=== PATIENT | female | born 1970 | race Caucasian/White ===

== ENCOUNTER 2023-08-25 09:45 | Outpatient (RCR) | payer OTHER, SELFPAY ==
--- NOTE | 2023-06-14 12:54 | PT.OIE ---
Current Diagnoses Rectocele (06/14/23) Pelvic muscle wasting (06/14/23) Past Surgical History History of tonsillectomy Status post surgery (10/27/15) Visit Care Team Role Provider Type Tonya Cartwright PA-C Primary Care Provider Non-Staff Specialty: Medical Address: [address] [place] [address] [address], [place], [address] Email: Aleyda Liao MD Family Provider Physician Specialty: PAPER DELIVERER Address: [address] [place] [address] [address], [place], [address] Email: [email or web address] Pablo Hassan MD Attending Provider Non-Staff Referring Provider Specialty: PAPER DELIVERER Address: [address] [place] [address], [address], [place], [address] Email: Physical Therapy Initial Evaluation PT-OP-A Visit Information Start: 06/14/23 08:15 Freq: Status: Active Protocol: Document 06/14/23 09:48 [facility] (Rec: 06/14/23 09:49 [facility] [id number]) Out-Patient Physical Therapy Visit Information Visit Information Visit Type Initial Evaluation Visit Start Time 09:48 Visit Stop Time 10:30 Visit Number 1 Evaluation Information Evaluation Date 06/14/23 PT-OP-B Current Condition Start: 06/14/23 08:15 Freq: Status: Active Protocol: Document 06/14/23 09:45 [facility] (Rec: 06/14/23 10:21 [facility] [id number]) Current Condition History of Current Condition Onset Date October 2021 Current Complaints pelvic heaviness, pressure, flatulence, decreased ability to weight lift 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 She was also have heavy periods and break through bleeding. She had a D&C just to make sure everything is going well. He told her she had a minor prolapse and gave her a note to decrease repetitive lifting. Now the lifting is pretty minimal. Recently it increased and she was told stage 2 rectocele and stage 1 uterine prolapse. She started working out and lifting weights and that's when things started to increase. She feels like air is trapped and bubbles and flatulence. She stopped working out as she didn't want it to get worse. History of vaginal deliveries x 2 with a 10 lb baby with her first. She has chronic IBS and constipation and she has constipation, she is now taking magnesium and she feels less bloated. Making sure she is more regular helps take that pressure off. 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 She notes that exercise including weight lifting and lifting anything heavy has made it worse. PT-OP-F Manual Assessment Start: 06/14/23 08:15 Freq: Status: Active Protocol: Document 06/14/23 09:45 [facility] (Rec: 06/15/23 12:35 [facility] [id number]) Manual Assessments Soft Tissue Assessment Soft Tissue Mobility Assessment tightness in the fascial tissue of the descending colon on left side of abdominal wall PT-OP-I Pelvic Floor Start: 06/14/23 08:15 Freq: Status: Active Protocol: Document 06/14/23 09:45 [facility] (Rec: 06/15/23 12:35 [facility] [id number]) Pelvic Floor Assessment Urine Pelvic Floor Surgery No Urinary Symptoms Prolapse Other Urinary Symptoms incomplete emptying of the bowels and feeling as if there is air in her rectum, flatulence Other Leakage Causes no urinary leakage noted Pelvic Clock Pelvic Clock 12-3 Atrophy Pelvic Clock 3-6 Atrophy Pelvic Clock 6-9 Atrophy Pelvic Clock 9-12 Atrophy Prolapse Uterine Prolapse Grade 2 Cystocele Grade 1 Rectocele Grade 1 Prolapse Comments thinning of the tissue over the rectum Contraction Ability Voluntary Contraction Weak Voluntary Relaxation Weak Manual Muscle Testing Left 2 Manual Muscle Testing Right 2 Manual Muscle Testing Anterior 2 Manual Muscle Testing Posterior 2 Muscle Endurance (Seconds) 3 Comments Pelvic Floor Comments decreased endurance of the levator ani PT-OP-Q Treatments Start: 06/14/23 08:15 Freq: Status: Active Protocol: Document 06/14/23 09:45 [facility] (Rec: 06/15/23 12:35 [facility] [id number]) Therapeutic Exercises Supine Exercises pelvic floor long holds Reps/Minutes working up to 10 second hold and 10 second relaxation PT-OP-T Assessment and Plan Start: 06/14/23 08:15 Freq: Status: Active Protocol: Document 06/14/23 09:45 [facility] (Rec: 06/15/23 12:35 [facility] [id number]) Physical Therapy Assessment Rehab Potential Rehabilitation Potential Excellent Evaluation Complexity Number of Personal Factors/Comorbidities 0 Number of Body Systems Impaired 1-2 Clinical Presentation at Evaluation Stable Impairments Impairments Activity Tolerance,Functional Activities,Functional Mobility ,Pain,Soft Tissue Mobility, Strength,Tone Other Impairments pelvic organ prolapse which limits activity level Goals 3 Impairment pelvic organ prolapse with complaints of feeling as if she is sitting on a ball Short Term Goal (STG) Mirna is educated in pelvic decompression exercises STG Duration 4 weeks Electronic Health Records Specialist Goal (LTG) Mirna is able to return to weightlifting using proper form and breathing strategies to decrease downward force onto her pelvic organs LTG Duration 12 weeks 2 Impairment Decreased strength of the pelvic floor with MMT of 2/5 Short Term Goal (STG) Mirna is educated on a HEP to increase pelvic floor strength STG Duration 4 weeks Electronic Health Records Specialist Goal (LTG) Mirna presents with a overall improvement of pelvic floor strength to 3/5 or better to improve pelvic organ support LTG Duration 12 weeks 1 Impairment Decreased endurance of the pelvic floor Short Term Goal (STG) Mirna is able to sustain a pelvic floor contraction x 10 seconds in supine STG Duration 5 weeks Electronic Health Records Specialist Goal (LTG) Mirna is able to sustain a pelvic floor contraction in standing x 10 seconds LTG Duration 12 weeks Assessment Summary Assessment Mirna is a 52 year old female referred to PT for pelvic floor rehab for pelvic organ prolapse. She began noting symptoms in 2021 but recently her symptoms increased after she started going to the gym and weight lifting. Specifically Mirna notes increased feeling of flatulence and air being trapped in her rectum and seh feels pressure when she is sitting as if she is sitting on a ball. She has a history of IBS and chronic constipation. Recently she has really been working on this and has been supplementing with magnesium which she feels is really helping her bowels. Mirna is wanting to continue exercising and weightlifting but has stopped due to increased pressure. WIth exam today there is fascial tightness over the descending colon on the left lateral abdominal wall. Mirna was shown a self massage for her colon. With pelvic floor exam Mirna is able to facilitate a contraction of all crane of her levator ani. She tests 2/ 5 MMT and atrophy is noted as well as thinning over the posterior wall. She may be a candidate for vaginal estrogen to help with vaginal tissue. She lacks endurance of the pelvic floor and is only able to hold for a few seconds at a time. There is a grade 1-2 uterine prolapse, grade 1-2 rectal prolapse and grade 1 cystocele with exam today. I did recommend poise impressa supports for when she is exercising to help with splinting her pelvic organs. She did say she was educated on a pessary but it was not something she wanted to do right now. Mirna is a good candidate for pelvic floor PT. Treatment will focus on pelvic decompression exercises, pelvic floor endurance training, pelvic floor strength training, toileting strategies, MFR for the abdominal wall and HEP. Physical Therapy Plan Frequency and Duration Frequency of Treatment 1x/Week Duration of treatment (weeks) 12 Plan of Care Start Date 06/14/23 Plan of Care End Date 09/27/23 Therapeutic Interventions Therapeutic Interventions Home Exercise Program,Manual Therapy,Patient/Caregiver Education,Self-Care/Home Management,Soft Tissue Mobilization,Therapeutic Exercises Modalities Biofeedback Next Visit Focus/Plan Next Note Type Treatment Note Next Visit Plan work on positions to provide decompression of the pelvis, EMG biofeedback for pelvic floor endurance training, MFR techniques for the abdominal wall and colon
--- NOTE | 2023-06-14 12:58 | PT.OPPOC ---
Physical, Occupational & Speech Therapy At [facility] Current Diagnoses Rectocele (06/14/23) Pelvic muscle wasting (06/14/23) Visit Care Team Role Provider Type Tonya Cartwright PA-C Primary Care Provider Non-Staff Specialty: Medical Address: [address] [place] [address] [address], [place], [address] Email: Aleyda Liao MD Family Provider Physician Specialty: DRAFTING CLERK Address: [address] [place] [address] [address], [place], [address] Email: [email or web address] Pablo Hassan MD Attending Provider Non-Staff Referring Provider Specialty: DRAFTING CLERK Address: [address] [place] [address], [address], [place], [address] Email: Plan Of Care PT-OP-T Assessment and Plan Start: 06/14/23 08:15 Freq: Status: Active Protocol: Document 06/14/23 09:45 [facility] (Rec: 06/15/23 12:35 [facility] [id number]) Physical Therapy Assessment Rehab Potential Rehabilitation Potential Excellent Evaluation Complexity Number of Personal Factors/Comorbidities 0 Number of Body Systems Impaired 1-2 Clinical Presentation at Evaluation Stable Impairments Impairments Activity Tolerance,Functional Activities,Functional Mobility ,Pain,Soft Tissue Mobility, Strength,Tone Other Impairments pelvic organ prolapse which limits activity level Goals 3 Impairment pelvic organ prolapse with complaints of feeling as if she is sitting on a ball Short Term Goal (STG) Mirna is educated in pelvic decompression exercises STG Duration 4 weeks Retirement Goal (LTG) Mirna is able to return to weightlifting using proper form and breathing strategies to decrease downward force onto her pelvic organs LTG Duration 12 weeks 2 Impairment Decreased strength of the pelvic floor with MMT of 2/5 Short Term Goal (STG) Mirna is educated on a HEP to increase pelvic floor strength STG Duration 4 weeks Payroll Representative Goal (LTG) Mirna presents with a overall improvement of pelvic floor strength to 3/5 or better to improve pelvic organ support LTG Duration 12 weeks 1 Impairment Decreased endurance of the pelvic floor Short Term Goal (STG) Mirna is able to sustain a pelvic floor contraction x 10 seconds in supine STG Duration 5 weeks Retirement Goal (LTG) Mirna is able to sustain a pelvic floor contraction in standing x 10 seconds LTG Duration 12 weeks Assessment Summary Assessment Mirna is a 52 year old female referred to PT for pelvic floor rehab for pelvic organ prolapse. She began noting symptoms in 2021 but recently her symptoms increased after she started going to the gym and weight lifting. Specifically Mirna notes increased feeling of flatulence and air being trapped in her rectum and seh feels pressure when she is sitting as if she is sitting on a ball. She has a history of IBS and chronic constipation. Recently she has really been working on this and has been supplementing with magnesium which she feels is really helping her bowels. Mirna is wanting to continue exercising and weightlifting but has stopped due to increased pressure. WIth exam today there is fascial tightness over the descending colon on the left lateral abdominal wall. Mirna was shown a self massage for her colon. With pelvic floor exam Mirna is able to facilitate a contraction of all crane of her levator ani. She tests 2/ 5 MMT and atrophy is noted as well as thinning over the posterior wall. She may be a candidate for vaginal estrogen to help with vaginal tissue. She lacks endurance of the pelvic floor and is only able to hold for a few seconds at a time. There is a grade 1-2 uterine prolapse, grade 1-2 rectal prolapse and grade 1 cystocele with exam today. I did recommend poise impressa supports for when she is exercising to help with splinting her pelvic organs. She did say she was educated on a pessary but it was not something she wanted to do right now. Mirna is a good candidate for pelvic floor PT. Treatment will focus on pelvic decompression exercises, pelvic floor endurance training, pelvic floor strength training, toileting strategies, MFR for the abdominal wall and HEP. Physical Therapy Plan Frequency and Duration Frequency of Treatment 1x/Week Duration of treatment (weeks) 12 Plan of Care Start Date 06/14/23 Plan of Care End Date 09/27/23 Therapeutic Interventions Therapeutic Interventions Home Exercise Program,Manual Therapy,Patient/Caregiver Education,Self-Care/Home Management,Soft Tissue Mobilization,Therapeutic Exercises Modalities Biofeedback Next Visit Focus/Plan Next Note Type Treatment Note Next Visit Plan work on positions to provide decompression of the pelvis, EMG biofeedback for pelvic floor endurance training, MFR techniques for the abdominal wall and colon Plan of Care Dates Plan of Care Start Date 06/14/23 Plan of Care End Date 09/27/23 Electronically Signed by: Augusta Johnson, PT 06/15/23 7420 If you are in agreement with this Plan of Care, please return a signed and dated copy. I have reviewed this Plan of Care and certify that the skilled therapy services above are required to meet the patient?s needs. Physician Signature Date Printed Name and Credentials Clinical Instructor Signature Printed Name and Credentials
--- NOTE | 2023-06-22 12:20 | PT.OTN ---
Current Diagnoses Rectocele (06/21/23) Pelvic muscle wasting (06/21/23) Physical Therapy Treatment Note PT-OP-A Visit Information Start: 06/14/23 08:15 Freq: Status: Active Protocol: Document 06/21/23 09:02 [facility] (Rec: 06/21/23 09:51 [facility] [id number]) Out-Patient Physical Therapy Visit Information Visit Information Visit Type Treatment Note Visit Start Time 09:00 Visit Stop Time 09:45 Visit Number 2 PT-OP-B Current Condition Start: 06/14/23 08:15 Freq: Status: Active Protocol: Document 06/14/23 09:45 [facility] (Rec: 06/14/23 10:21 [facility] [id number]) Current Condition History of Current Condition Onset Date October 2021 Current Complaints pelvic heaviness, pressure, flattulance, decreased ability to weight lift 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 She was also have heavy periods and break through bleeding. She had a D&C just to make sure everything is going well. He told her she had a minor prolapse and gave her a note to decrease repetive lifting. Now the lifting is pretty minmal. Recently it increased and she was told stage 2 rectocele and stage 1 uterine prolapse. She started working out and lifting weights and thats when things started to increase. She feels like air is trapped and bubbles and flattulance. She stopped working out as she didn't want it to get worse. History of vaginal deliveries x 2 with a 10 lb baby with her first. She has chronic IBS and constipation and she has constipation, she is now taking magnesium and she feels less bloated. Making sure she is more regular helps take that pressure off. 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 She can feel the pelvic floor more when on her side. PT-OP-F Manual Assessment Start: 06/14/23 08:15 Freq: Status: Active Protocol: Document 06/14/23 09:45 [facility] (Rec: 06/15/23 12:35 [facility] [id number]) Manual Assessments Soft Tissue Assessment Soft Tissue Mobility Assessment tightness in the fascial tissue of the descending colon on left side of abdominal wall PT-OP-I Pelvic Floor Start: 06/14/23 08:15 Freq: Status: Active Protocol: Document 06/14/23 09:45 [facility] (Rec: 06/15/23 12:35 [facility] [id number]) Pelvic Floor Assessment Urine Pelvic Floor Surgery No Urinary Symptoms Prolapse Other Urinary Symptoms incomplete emptlying of the bowels and feeling as if there is air in her rectum, flattulance Other Leakage Causes no urinary leakage noted Pelvic Clock Pelvic Clock 12-3 Atrophy Pelvic Clock 3-6 Atrophy Pelvic Clock 6-9 Atrophy Pelvic Clock 9-12 Atrophy Prolapse Uterine Prolapse Grade 2 Cystocele Grade 1 Rectocele Grade 1 Prolapse Comments thinning of the tissue over the rectum Contraction Ability Voluntary Contraction Weak Voluntary Relaxation Weak Manual Muscle Testing Left 2 Manual Muscle Testing Right 2 Manual Muscle Testing Anterior 2 Manual Muscle Testing Posterior 2 Muscle Endurance (Seconds) 3 Comments Pelvic Floor Comments decreased endurance of the levator ani PT-OP-Q Treatments Start: 06/14/23 08:15 Freq: Status: Active Protocol: Document 06/21/23 09:02 [facility] (Rec: 06/21/23 09:51 [facility] [id number]) Therapeutic Exercises Supine Exercises supine ball squeeze Reps/Minutes x 10 reps Comments also tried sidelying and this worked well for Mirna pelvic floor long holds Comments 10.9 and max of 23.1 uv Manual Therapy Treatment Soft Tissue Mobilization ILU colon massage Comments pt is working on this for paul suprapubic fascia release Mobilization Type Myofascial Release Intensity/Depth Moderate Body Position Supine PT-OP-T Assessment and Plan Start: 06/14/23 08:15 Freq: Status: Active Protocol: Document 06/21/23 09:02 [facility] (Rec: 06/21/23 09:51 [facility] [id number]) Physical Therapy Assessment Assessment Summary Assessment trial of wedge today to provide some inversion for the pelvic organs, started EMG biofeedback and Mirna tolerated this well. Tushar is a challange for her and it did help her to lay on her side with a pillow between her knees. She responded well to fascial release over the abdominal wall Physical Therapy Plan Frequency and Duration Frequency of Treatment 1x/Week Duration of treatment (weeks) 12 Plan of Care Start Date 06/14/23 Plan of Care End Date 09/27/23 Therapeutic Interventions Therapeutic Interventions Home Exercise Program,Manual Therapy,Patient/Caregiver Education,Self-Care/Home Management,Soft Tissue Mobilization,Therapeutic Exercises Modalities Biofeedback Next Visit Focus/Plan Next Note Type Treatment Note Next Visit Plan continue with fascial release, begin working in hands and knees on TA activation, add in lateral hip strengthening, EMG biofeedback for the pelvic floor endurance training, diaphragmatic breathing
--- NOTE | 2023-07-05 17:00 | PT.OTN ---
Current Diagnoses Rectocele (07/05/23) Pelvic muscle wasting (07/05/23) Physical Therapy Treatment Note PT-OP-A Visit Information Start: 06/14/23 08:15 Freq: Status: Active Protocol: Document 07/05/23 09:02 [facility] (Rec: 07/05/23 09:53 [facility] [id number]) Out-Patient Physical Therapy Visit Information Visit Information Visit Type Treatment Note Visit Start Time 09:05 Visit Stop Time 09:45 Visit Number 3 PT-OP-B Current Condition Start: 06/14/23 08:15 Freq: Status: Active Protocol: Document 06/14/23 09:45 [facility] (Rec: 06/14/23 10:21 [facility] [id number]) Current Condition History of Current Condition Onset Date October 2021 Current Complaints pelvic heaviness, pressure, flattulance, decreased ability to weight lift 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 She was also have heavy periods and break through bleeding. She had a D&C just to make sure everything is going well. He told her she had a minor prolapse and gave her a note to decrease repetive lifting. Now the lifting is pretty minmal. Recently it increased and she was told stage 2 rectocele and stage 1 uterine prolapse. She started working out and lifting weights and thats when things started to increase. She feels like air is trapped and bubbles and flattulance. She stopped working out as she didn't want it to get worse. History of vaginal deliveries x 2 with a 10 lb baby with her first. She has chronic IBS and constipation and she has constipation, she is now taking magnesium and she feels less bloated. Making sure she is more regular helps take that pressure off. 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 SHe started her cycle a few days ago and she has been able to wear her tampon without is moving out of her. She is feeling that things are improving PT-OP-F Manual Assessment Start: 06/14/23 08:15 Freq: Status: Active Protocol: Document 06/14/23 09:45 [facility] (Rec: 06/15/23 12:35 [facility] [id number]) Manual Assessments Soft Tissue Assessment Soft Tissue Mobility Assessment tightness in the fascial tissue of the descending colon on left side of abdominal wall PT-OP-I Pelvic Floor Start: 06/14/23 08:15 Freq: Status: Active Protocol: Document 06/14/23 09:45 [facility] (Rec: 06/15/23 12:35 [facility] [id number]) Pelvic Floor Assessment Urine Pelvic Floor Surgery No Urinary Symptoms Prolapse Other Urinary Symptoms incomplete emptlying of the bowels and feeling as if there is air in her rectum, flattulance Other Leakage Causes no urinary leakage noted Pelvic Clock Pelvic Clock 12-3 Atrophy Pelvic Clock 3-6 Atrophy Pelvic Clock 6-9 Atrophy Pelvic Clock 9-12 Atrophy Prolapse Uterine Prolapse Grade 2 Cystocele Grade 1 Rectocele Grade 1 Prolapse Comments thinning of the tissue over the rectum Contraction Ability Voluntary Contraction Weak Voluntary Relaxation Weak Manual Muscle Testing Left 2 Manual Muscle Testing Right 2 Manual Muscle Testing Anterior 2 Manual Muscle Testing Posterior 2 Muscle Endurance (Seconds) 3 Comments Pelvic Floor Comments decreased endurance of the levator ani PT-OP-Q Treatments Start: 06/14/23 08:15 Freq: Status: Active Protocol: Document 07/05/23 09:02 [facility] (Rec: 07/05/23 09:53 [facility] [id number]) Therapeutic Exercises Supine Exercises TA with march Reps/Minutes x 10 Sidelying Exercises clam shels Reps/Minutes 3 x 10 reps Sitting Exercises sit-stand with pelvic floor engagement Reps/Minutes x 4 Comments cues to engage pelvic floor on way up Standing Exercises modified down dog stretch Reps/Minutes hold 1-2 min dynamic hamstring flossing in standing Reps/Minutes x 10 Comments Mirna could feel a good stretch with this exercise standing squats Reps/Minutes x 10 Comments worked on form with squats to hinge at the hips Other Exercises cat cow Reps/Minutes x 10 reps quadruped TA Reps/Minutes x 10 reps Self-Care/Home Management Treatment Education Patient Education Body Mechanics,Home Exercise Program,Posture Other Education body mechanics for squats PT-OP-T Assessment and Plan Start: 06/14/23 08:15 Freq: Status: Active Protocol: Document 07/05/23 09:00 [facility] (Rec: 07/06/23 08:15 [facility] [id number]) Physical Therapy Assessment Assessment Summary Assessment Mirna is working hard on pelvic floor strengthening and is noting that tampons are fitting better. She was on her menstrual cycle today so EMG biofeedback was not done and we focused on core stabilization exercises as well as hip hinge for squats as she feels it is difficult for her to squat in correct form. I added in down dog stretch and dynamic hamstring flossing to help with squat form and hip hinge Physical Therapy Plan Frequency and Duration Frequency of Treatment 1x/Week Duration of treatment (weeks) 12 Plan of Care Start Date 06/14/23 Plan of Care End Date 09/27/23 Therapeutic Interventions Therapeutic Interventions Home Exercise Program,Manual Therapy,Patient/Caregiver Education,Self-Care/Home Management,Soft Tissue Mobilization,Therapeutic Exercises Modalities Biofeedback Next Visit Focus/Plan Next Note Type Treatment Note Next Visit Plan continue with EMG biofeedback next visit and re-evaluate pelvic floor strength
--- NOTE | 2023-08-03 09:49 | PT.OTN ---
Current Diagnoses Rectocele (08/03/23) Pelvic muscle wasting (08/03/23) Physical Therapy Treatment Note PT-OP-A Visit Information Start: 06/14/23 08:15 Freq: Status: Active Protocol: Document 08/03/23 08:14 [facility] (Rec: 08/03/23 09:05 [facility] [id number]) Out-Patient Physical Therapy Visit Information Visit Information Visit Type Treatment Note Visit Start Time 08:15 Visit Stop Time 09:00 Visit Number 4 PT-OP-B Current Condition Start: 06/14/23 08:15 Freq: Status: Active Protocol: Document 06/14/23 09:45 [facility] (Rec: 06/14/23 10:21 [facility] [id number]) Current Condition History of Current Condition Onset Date October 2021 Current Complaints pelvic heaviness, pressure, flattulance, decreased ability to weight lift 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 She was also have heavy periods and break through bleeding. She had a D&C just to make sure everything is going well. He told her she had a minor prolapse and gave her a note to decrease repetive lifting. Now the lifting is pretty minmal. Recently it increased and she was told stage 2 rectocele and stage 1 uterine prolapse. She started working out and lifting weights and thats when things started to increase. She feels like air is trapped and bubbles and flattulance. She stopped working out as she didn't want it to get worse. History of vaginal deliveries x 2 with a 10 lb baby with her first. She has chronic IBS and constipation and she has constipation, she is now taking magnesium and she feels less bloated. Making sure she is more regular helps take that pressure off. 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 Mirna also reports she has been dealing with other health issues and these have taken a lot of her focus so she has not yet been at the gym or done cardio exercises. She is menstruating today so did not bring her pelvic floor sensor for EMG biofeedback Patient Reported Progress Improving PT-OP-F Manual Assessment Start: 06/14/23 08:15 Freq: Status: Active Protocol: Document 06/14/23 09:45 [facility] (Rec: 06/15/23 12:35 [facility] [id number]) Manual Assessments Soft Tissue Assessment Soft Tissue Mobility Assessment tightness in the fascial tissue of the descending colon on left side of abdominal wall PT-OP-I Pelvic Floor Start: 06/14/23 08:15 Freq: Status: Active Protocol: Document 06/14/23 09:45 [facility] (Rec: 06/15/23 12:35 [facility] [id number]) Pelvic Floor Assessment Urine Pelvic Floor Surgery No Urinary Symptoms Prolapse Other Urinary Symptoms incomplete emptlying of the bowels and feeling as if there is air in her rectum, flattulance Other Leakage Causes no urinary leakage noted Pelvic Clock Pelvic Clock 12-3 Atrophy Pelvic Clock 3-6 Atrophy Pelvic Clock 6-9 Atrophy Pelvic Clock 9-12 Atrophy Prolapse Uterine Prolapse Grade 2 Cystocele Grade 1 Rectocele Grade 1 Prolapse Comments thinning of the tissue over the rectum Contraction Ability Voluntary Contraction Weak Voluntary Relaxation Weak Manual Muscle Testing Left 2 Manual Muscle Testing Right 2 Manual Muscle Testing Anterior 2 Manual Muscle Testing Posterior 2 Muscle Endurance (Seconds) 3 Comments Pelvic Floor Comments decreased endurance of the levator ani PT-OP-Q Treatments Start: 06/14/23 08:15 Freq: Status: Active Protocol: Document 08/03/23 08:14 [facility] (Rec: 08/03/23 09:05 [facility] [id number]) Therapeutic Exercises Supine Exercises TA with SLR Reps/Minutes x 10 each side Comments cues to brace first with inner core bridge with ball squeeze Side bilateral Reps/Minutes 2 x 10 reps with cues to segmentally move through the spinal segments TA with march Reps/Minutes x 10 Comments worked towards LA progression level 1 b and this was much harder pelvic floor long holds Side bilateral Reps/Minutes x 3 Sidelying Exercises clam shels Reps/Minutes 3 x 10 reps Other Exercises albaro pose Reps/Minutes hold 1-2 cat cow Reps/Minutes x 10 reps quadruped TA Reps/Minutes x 10 reps Self-Care/Home Management Treatment Activities Self-Care/Home Management Activities discussion of hormone testing and getting a baseline for hormonal support with pelvic floor Discussion of health symptoms and talkign through starting with walking in the am as Mirna is having difficulty with fatigue in the afternoons making it to the gym after working hours. PT-OP-T Assessment and Plan Start: 06/14/23 08:15 Freq: Status: Active Protocol: Document 08/03/23 08:14 [facility] (Rec: 08/03/23 09:05 [facility] [id number]) Physical Therapy Assessment Goals 3 Impairment pelvic organ prolapse with complaints of feeling as if she is sitting on a ball Short Term Goal (STG) Mirna is educated in pelvic decompression exercises STG Duration 4 weeks Alf Goal (LTG) Mirna is able to retun to weightlifting using proper form and breathng strategies to decrease downward force onto her pelvic organs LTG Duration 12 weeks 2 Impairment Decreased strength of the pelvic floor with MMT of 2/5 Short Term Goal (STG) Mirna is educated on a HEP to increase pelvic floor strength STG Duration 4 weeks Alf Goal (LTG) Mirna presents with a overall improvement of pelvic floor strength to 3/5 or better to improve pelvic organ support LTG Duration 12 weeks 1 Impairment Decreased endurance of the pelvci floor Short Term Goal (STG) Mirna is able to sustain a pelvic floor contraction x 10 seconds in supine STG Duration 5 weeks Alf Goal (LTG) Mirna is able to sustain a pelvic floor contraction in standing x 10 seconds LTG Duration 12 weeks Assessment Summary Assessment worked on segmental lumbar mobility with bridges today, I tried increasing to level 1b lower abdominal progression however this was much harder to keep stabilized. We initiated SLR with core contraction and Mirna tolerated this much better. She did not have her sensor with her today due to menstruation so we will go back to EMG biofeedback at her next visit. Physical Therapy Plan Frequency and Duration Frequency of Treatment 1x/Week Duration of treatment (weeks) 12 Plan of Care Start Date 06/14/23 Plan of Care End Date 09/27/23 Therapeutic Interventions Therapeutic Interventions Home Exercise Program,Manual Therapy,Patient/Caregiver Education,Self-Care/Home Management,Soft Tissue Mobilization,Therapeutic Exercises Modalities Biofeedback Next Visit Focus/Plan Next Note Type Treatment Note Next Visit Plan continue with EMG biofeedback next visit and re-evaluate pelvic floor strength
--- NOTE | 2023-08-25 18:16 | PT.OTN ---
Current Diagnoses Rectocele (08/25/23) Pelvic muscle wasting (08/25/23) Physical Therapy Treatment Note PT-OP-A Visit Information Start: 06/14/23 08:15 Freq: Status: Active Protocol: Document 08/25/23 09:58 [facility] (Rec: 08/25/23 10:33 [facility] [id number]) Out-Patient Physical Therapy Visit Information Visit Information Visit Type Treatment Note Visit Start Time 09:55 Visit Stop Time 10:30 Visit Number 5 PT-OP-B Current Condition Start: 06/14/23 08:15 Freq: Status: Active Protocol: Document 06/14/23 09:45 [facility] (Rec: 06/14/23 10:21 [facility] [id number]) Current Condition History of Current Condition Onset Date October 2021 Current Complaints pelvic heaviness, pressure, flattulance, decreased ability to weight lift 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 She was also have heavy periods and break through bleeding. She had a D&C just to make sure everything is going well. He told her she had a minor prolapse and gave her a note to decrease repetive lifting. Now the lifting is pretty minmal. Recently it increased and she was told stage 2 rectocele and stage 1 uterine prolapse. She started working out and lifting weights and thats when things started to increase. She feels like air is trapped and bubbles and flattulance. She stopped working out as she didn't want it to get worse. History of vaginal deliveries x 2 with a 10 lb baby with her first. She has chronic IBS and constipation and she has constipation, she is now taking magnesium and she feels less bloated. Making sure she is more regular helps take that pressure off. 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 She is also feeling better with the feeling of gas and she is not feeling as much of the pressure. PT-OP-F Manual Assessment Start: 06/14/23 08:15 Freq: Status: Active Protocol: Document 06/14/23 09:45 [facility] (Rec: 06/15/23 12:35 [facility] [id number]) Manual Assessments Soft Tissue Assessment Soft Tissue Mobility Assessment tightness in the fascial tissue of the descending colon on left side of abdominal wall PT-OP-I Pelvic Floor Start: 06/14/23 08:15 Freq: Status: Active Protocol: Document 06/14/23 09:45 [facility] (Rec: 06/15/23 12:35 [facility] [id number]) Pelvic Floor Assessment Urine Pelvic Floor Surgery No Urinary Symptoms Prolapse Other Urinary Symptoms incomplete emptlying of the bowels and feeling as if there is air in her rectum, flattulance Other Leakage Causes no urinary leakage noted Pelvic Clock Pelvic Clock 12-3 Atrophy Pelvic Clock 3-6 Atrophy Pelvic Clock 6-9 Atrophy Pelvic Clock 9-12 Atrophy Prolapse Uterine Prolapse Grade 2 Cystocele Grade 1 Rectocele Grade 1 Prolapse Comments thinning of the tissue over the rectum Contraction Ability Voluntary Contraction Weak Voluntary Relaxation Weak Manual Muscle Testing Left 2 Manual Muscle Testing Right 2 Manual Muscle Testing Anterior 2 Manual Muscle Testing Posterior 2 Muscle Endurance (Seconds) 3 Comments Pelvic Floor Comments decreased endurance of the levator ani PT-OP-Q Treatments Start: 06/14/23 08:15 Freq: Status: Active Protocol: Document 08/25/23 09:58 [facility] (Rec: 08/25/23 10:33 [facility] [id number]) Therapeutic Exercises Supine Exercises pelvic floor long holds Reps/Minutes 7.0 and max of 10 uv PT-OP-T Assessment and Plan Start: 06/14/23 08:15 Freq: Status: Active Protocol: Document 08/25/23 09:58 [facility] (Rec: 08/25/23 10:33 [facility] [id number]) Physical Therapy Assessment Goals 3 Impairment pelvic organ prolapse with complaints of feeling as if she is sitting on a ball Short Term Goal (STG) Mirna is educated in pelvic decompression exercises STG Duration 4 weeks Skilled Nursing Goal (LTG) Mirna is able to retun to weightlifting using proper form and breathng strategies to decrease downward force onto her pelvic organs LTG Duration 12 weeks 2 Impairment Decreased strength of the pelvic floor with MMT of 2/5 Short Term Goal (STG) Mirna is educated on a HEP to increase pelvic floor strength STG Duration 4 weeks Environmental Professional Goal (LTG) Mirna presents with a overall improvement of pelvic floor strength to 3/5 or better to improve pelvic organ support LTG Duration 12 weeks 1 Impairment Decreased endurance of the pelvci floor Short Term Goal (STG) Mirna is able to sustain a pelvic floor contraction x 10 seconds in supine STG Duration 5 weeks Environmental Professional Goal (LTG) Mirna is able to sustain a pelvic floor contraction in standing x 10 seconds LTG Duration 12 weeks Assessment Summary Assessment I added in eccentric control today with templates on EMG biofeedback, this was challenging for Mirna and I added this into her HEP. She is doing better overall with decreased complaints of pelvic pressure and she has returned to the gym with a modified gym routine. Physical Therapy Plan Frequency and Duration Frequency of Treatment 1x/Week Duration of treatment (weeks) 12 Plan of Care Start Date 06/14/23 Plan of Care End Date 09/27/23 Therapeutic Interventions Therapeutic Interventions Home Exercise Program,Manual Therapy,Patient/Caregiver Education,Self-Care/Home Management,Soft Tissue Mobilization,Therapeutic Exercises Modalities Biofeedback Next Visit Focus/Plan Next Note Type Treatment Note Next Visit Plan continue with EMG biofeedback next visit and with eccentric control templates with EMG biofeedback, begin working on squats and progressing core stabilization
--- NOTE | 2024-03-14 11:09 | PT.OPDS ---
Current Diagnoses Rectocele (08/25/23) Pelvic muscle wasting (08/25/23) Visit Care Team Role Provider Type Tonya Cartwright PA-C Primary Care Provider Non-Staff Specialty: Medical Address: [address] [place] [address] [address], [place], [address] Email: Aleyda Liao MD Family Provider Physician Specialty: TRAVELING NURSE Address: [address] [place] [address] [address], [place], [address] Email: [email or web address] Hassan MD Attending Provider Non-Staff Referring Provider Specialty: TRAVELING NURSE Address: [address] [place] [address], [address], [place], [address] Email: Visit Number Visit Number 5 Discharge Summary PT-OP-B Current Condition Start: 06/14/23 08:15 Freq: Status: Active Protocol: Document 06/14/23 09:45 [facility] (Rec: 06/14/23 10:21 [facility] [id number]) Current Condition History of Current Condition Onset Date October 2021 Current Complaints pelvic heaviness, pressure, flattulance, decreased ability to weight lift 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 She was also have heavy periods and break through bleeding. She had a D&C just to make sure everything is going well. He told her she had a minor prolapse and gave her a note to decrease repetive lifting. Now the lifting is pretty minmal. Recently it increased and she was told stage 2 rectocele and stage 1 uterine prolapse. She started working out and lifting weights and thats when things started to increase. She feels like air is trapped and bubbles and flattulance. She stopped working out as she didn't want it to get worse. History of vaginal deliveries x 2 with a 10 lb baby with her first. She has chronic IBS and constipation and she has constipation, she is now taking magnesium and she feels less bloated. Making sure she is more regular helps take that pressure off. 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 She is also feeling better with the feeling of gas and she is not feeling as much of the pressure. PT-OP-F Manual Assessment Start: 06/14/23 08:15 Freq: Status: Active Protocol: Document 06/14/23 09:45 [facility] (Rec: 06/15/23 12:35 [facility] [id number]) Manual Assessments Soft Tissue Assessment Soft Tissue Mobility Assessment tightness in the fascial tissue of the descending colon on left side of abdominal wall PT-OP-I Pelvic Floor Start: 06/14/23 08:15 Freq: Status: Active Protocol: Document 06/14/23 09:45 [facility] (Rec: 06/15/23 12:35 [facility] [id number]) Pelvic Floor Assessment Urine Pelvic Floor Surgery No Urinary Symptoms Prolapse Other Urinary Symptoms incomplete emptlying of the bowels and feeling as if there is air in her rectum, flattulance Other Leakage Causes no urinary leakage noted Pelvic Clock Pelvic Clock 12-3 Atrophy Pelvic Clock 3-6 Atrophy Pelvic Clock 6-9 Atrophy Pelvic Clock 9-12 Atrophy Prolapse Uterine Prolapse Grade 2 Cystocele Grade 1 Rectocele Grade 1 Prolapse Comments thinning of the tissue over the rectum Contraction Ability Voluntary Contraction Weak Voluntary Relaxation Weak Manual Muscle Testing Left 2 Manual Muscle Testing Right 2 Manual Muscle Testing Anterior 2 Manual Muscle Testing Posterior 2 Muscle Endurance (Seconds) 3 Comments Pelvic Floor Comments decreased endurance of the levator ani PT-OP-T Assessment and Plan Start: 06/14/23 08:15 Freq: Status: Active Protocol: Document 03/14/24 11:09 [facility] (Rec: 03/14/24 11:09 [facility] [id number]) Physical Therapy Assessment Assessment Summary Assessment Mirna has not been seen since her last visit in August. She is out of her plan of care and will be discharged at this time Physical Therapy Plan Discharge Physical Therapy Discharge Reasons No Longer Attending PT
== END 2024-03-15 14:59 | disposition home or self-care (01) ==
LOC: PHYS 09:45
PROVIDERS: Family Provider Specialist; PCP Physician Assistant Medical; Referring Provider Obstetrics & Gynecology; Visit Provider Obstetrics & Gynecology
DX: N81.6 Rectocele (principal); N81.84 Pelvic muscle wasting
CPT/HCPCS: 97110; 97140; 97161; 97535